=== PATIENT | female | born 1975 | race Caucasian/White ===

== ENCOUNTER 2020-02-20 09:14 | Emergency (ER) | payer MEDICAID, SELFPAY ==
--- NOTE | ~2020-02-20 | CT_ITS ---
EXAMINATION: CT abdomen pelvis wo con DATE: 02/20/2020 09:59 INDICATION: Possible bowel obstruction and abdominal pain. TECHNIQUE: Computed tomography (CT) of the abdomen and pelvis was performed without intravenous contr ast. The dose-length product was 214.04 mGy-cm. Automated exposure control and iterative reconstructi on technique were employed. COMPARISON: None. FINDINGS: Bibasilar atelectasis. Heart size normal. No significant pleural or pericardial effusion. There is hepatomegaly. The spleen, pancreas, right adrenal gland and kidneys are unremarkable. There is a 1.9 cm left adrenal adenoma. Gallbladder is present. Nonobstructive bowel gas pattern. Large dhaval unt of retained fecal material in the colon. Evaluation for lymphadenopathy limited due to lack of co ntrast and intraperitoneal fat. There is a left femoral intramedullary vasile with screws in the femoral neck. Moderate lumbar spondylosis. IMPRESSION: 1. No acute abdominal abnormality. Moderate colonic fecal loading. No small bowel dilation. 2: Hepatomegaly. 3: Left adrenal adenoma measuring 1.9 cm. Reviewed, dictated and finalized at location A. IMPRESSION: 1. No acute abdominal abnormality. Moderate colonic fecal loading. No small bow el dilation. 2: Hepatomegaly. 3: Left adrenal adenoma measuring 1.9 cm.
[2020-02-20 09:16] VITALS: BP 118/76; PULSE 88; RESP 16; TEMP 36.6; O2SAT 100
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
[2020-02-20 09:42] LABS: Basophils Percent Auto 0.4 % (0.2-1.2); Eosinophils Absolute Auto 0.3 K/mm3 (0-0.3); Eosinophils Percent Auto 2.8 % (0-4.4); Hematocrit 41.2 % (37.0-47.0); Hemoglobin 13.8 g/dL (12.0-15.0); Immature Granulocyte Absolute 0.03 K/mm3 (0.00-0.031); Immature Granulocyte Percent A 0.3 % (0-0.5); Lymphocytes Absolute Auto 1.53 K/mm3 (0.9-3.2); Mean Corpuscular HGB Conc 33.5 g/dl (32-36); Mean Corpuscular Hemoglobin 31.8 pg (26-34); Mean Corpuscular Volume 94.9 fl (80-100); Mean Platelet Volume 11.7 fl (7.4-10.4); Monocytes Absolute Auto 0.6 K/mm3 (0.1-0.6); Monocytes Percent Auto 5.3 % (2.6-8.5); Neutrophils Absolute Auto 8.4 K/mm3 (1.3-6.7); Neutrophils Percent Auto 77.2 % (45.5-73.1); Platelet Count Result 247 k/mm3 (150-375); Red Blood Count 4.34 M/mm3 (4.2-5.4); White Blood Count 10.9 K/mm3 (4.5-10.0)
[2020-02-20 09:50] LABS: Add Urine Microscopic? NO; Appearance Urine Clear (Clear); Bacteria Urine Trace /hpf; Bilirubin Urine Negative (Negative); Blood Urine Negative (Negative); Color Urine Yellow (Yellow); Glucose Urine UA Negative (Negative); Ketones Urine Negative (Negative); Leukocyte Esterase Ur Negative LEU/UL (Negative); Mucus Urine Rare /lpf; Nitrate Urine Negative (Negative); Protein Urine Negative (Negative); RBC Urine 0-2 /hpf (0-2); Specific Grav Ur 1.018 (1.001-1.035); Squamous Epithelial Cell Urine Occasional /hpf (Few); Urobilinogen Urine Negative mg/dL (<2.0); WBC Urine 0-3 /hpf
[2020-02-20 10:03] LABS: Alanine Aminotransferase 27 U/L (4-35); Albumin Level 4.6 g/dL (3.5-5.1); Alkaline Phosphatase 39 U/L (38-126); Aspartate Amino Transferase 49 U/L (14-36); Bilirubin,Total 0.6 mg/dL (0.2-1.3); Blood Urea Nitrogen 22 mg/dL (7-17); Calcium 9.3 mg/dL (8.4-10.2); Carbon Dioxide 29 mmol/L (22-30); Chloride 103 mmol/L (98-107); Estimated CRCL calculation 64 ml/min; Estimated Glomerular Filt Rate > 60; Glucose 95 mg/dL (65-105); Lipase 126 U/L (23-300); Potassium 4.4 mmol/L (3.4-5.0); Sodium 138 mmol/L (137-145)
[2020-02-20] MEDS: FAMOTIDINE 20 MG/2 ML VIAL IV PUSH (10:09)
--- NOTE | 2020-02-20 10:09 | PC.NURSE ---
Call to pharmacy to check status of mag oxide pill. Message left.
[2020-02-20] MEDS: MAGNESIUM OXIDE 200 MG TABLET PO (10:27)
[2020-02-20 11:02] VITALS: BP 120/65; PULSE 80; RESP 18; O2SAT 100
== END 2020-02-20 11:04 | disposition home or self-care (01) ==
PROVIDERS: Emergency Provider Emergency Medicine; PCP Family Medicine
DX: K58.1 Irritable bowel syndrome with constipation (principal); F41.9 Anxiety disorder, unspecified; J45.909 Unspecified asthma, uncomplicated; F32.9 Major depressive disorder, single episode, unspecified; R16.0 Hepatomegaly, not elsewhere classified; D35.02 Benign neoplasm of left adrenal gland
CPT/HCPCS: 36415; 74176; 80053; 81003; 81025; 83690; 85025; 96374; 99284; A9270

== ENCOUNTER 2020-03-08 15:27 | Outpatient (CLI) | payer MEDICAID, SELFPAY ==
[2020-03-08 19:15] LABS: Free T4 Free Thyroxine Reflex 1.23 ng/dL (0.78-2.19)
[2020-03-09 04:40] LABS: Total Triiodothyronine (T3) 1.13 NG/ML (0.97-1.69)
== END 2020-03-08 15:28 | disposition home or self-care (01) ==
PROVIDERS: PCP Family Medicine; Visit Provider Family Medicine
DX: E03.9 Hypothyroidism, unspecified (principal)
CPT/HCPCS: 36415; 84439; 84443; 84480

== ENCOUNTER 2020-03-11 15:55 | Emergency (ER) | payer MEDICAID, SELFPAY ==
--- NOTE | ~2020-03-11 | CT_ITS ---
EXAMINATION: CT abdomen pelvis w con DATE: 03/11/2020 17:31 INDICATION: Right lower quadrant abdominal pain. TECHNIQUE: Computed tomography (CT) of the abdomen and pelvis was performed with 100 mL Omnipaque-350 intravenous contrast. Automated exposure control and iterative reconstruction technique were employe d. The dose-length product was 180.94 mGy-cm. COMPARISON: 02/20/2020 FINDINGS: Mild atelectasis/scarring at the right middle and left lower lobes. Visualized inferior heart is norm al. No pericardial or pleural effusion. The mid bile duct is mildly dilated measuring up to 7 mm in m aximal diameter and there is mild intrahepatic biliary ductal dilation. No definitive obstructing sto ne or mass. Liver is otherwise normal. Gallbladder is normal. Pancreas, spleen, bilateral kidneys and right adrenal gland are normal. 1.5 cm left adrenal adenoma with low attenuation on prior noncontras t study. Bowels including the appendix are normal. Partially decompressed bladder and anteverted uter us are normal. No free intraperitoneal gas or fluid. No pathologically enlarged abdominal or pelvic l ymphadenopathy. Partially visualized old distal left femoral diaphyseal fracture seen on the perforator operator to pogram which is fixed with an antegrade intramedullary vasile and a couple interlocking femoral neck scr ews. IMPRESSION: 1. Mild intra and extra hepatic biliary ductal dilation without evident obstructing stone or mass. Co rrelate with liver function tests and consider further evaluation with MRCP. Reviewed, dictated and finalized at location A. IMPRESSION: 1. Mild intra and extra hepatic biliary ductal dilation without evident obstruc ting stone or mass. Correlate with liver function tests and consider further ev aluation with MRCP.
[2020-03-11 16:05] VITALS: BP 125/77; PULSE 80; RESP 18; TEMP 37.1; O2SAT 100
[2020-03-11 16:59] LABS: Basophils Percent Auto 0.3 % (0.2-1.2); Eosinophils Absolute Auto 0.2 K/mm3 (0-0.3); Eosinophils Percent Auto 3.3 % (0-4.4); Hematocrit 36.5 % (37.0-47.0); Hemoglobin 12.5 g/dL (12.0-15.0); Immature Granulocyte Absolute 0.01 K/mm3 (0.00-0.031); Immature Granulocyte Percent A 0.2 % (0-0.5); Lymphocytes Absolute Auto 2.75 K/mm3 (0.9-3.2); Lymphocytes Percent Auto 45.3 % (18.3-44.2); Mean Corpuscular HGB Conc 34.2 g/dl (32-36); Mean Corpuscular Hemoglobin 31.6 pg (26-34); Mean Corpuscular Volume 92.4 fl (80-100); Mean Platelet Volume 11.5 fl (7.4-10.4); Monocytes Absolute Auto 0.4 K/mm3 (0.1-0.6); Monocytes Percent Auto 6.4 % (2.6-8.5); Neutrophils Absolute Auto 2.7 K/mm3 (1.3-6.7); Neutrophils Percent Auto 44.5 % (45.5-73.1); Platelet Count Result 190 k/mm3 (150-375); Red Blood Count 3.95 M/mm3 (4.2-5.4); Red Cell Distribution Width 11.9 % (11.5-14.5); White Blood Count 6.1 K/mm3 (4.5-10.0)
[2020-03-11 17:01] LABS: Add Urine Microscopic? NO; Appearance Urine Clear (Clear); Bilirubin Urine Negative (Negative); Blood Urine Negative (Negative); Color Urine Yellow (Yellow); Glucose Urine UA Negative (Negative); Ketones Urine Negative (Negative); Leukocyte Esterase Ur Negative LEU/UL (Negative); Nitrate Urine Negative (Negative); Protein Urine Negative (Negative); Urobilinogen Urine Negative mg/dL (<2.0)
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
[2020-03-11 17:14] LABS: Alanine Aminotransferase 13 U/L (4-35); Albumin Level 4.2 g/dL (3.5-5.1); Alkaline Phosphatase 38 U/L (38-126); Aspartate Amino Transferase 23 U/L (14-36); Bilirubin,Total 0.2 mg/dL (0.2-1.3); Blood Urea Nitrogen 15 mg/dL (7-17); CRP < 0.5 mg/dL (<1.0); Carbon Dioxide 29 mmol/L (22-30); Chloride 103 mmol/L (98-107); Estimated CRCL calculation 66 ml/min; Estimated Glomerular Filt Rate > 60; Glucose 76 mg/dL (65-105); Lipase 64 U/L (23-300); Potassium 3.5 mmol/L (3.4-5.0); Sodium 137 mmol/L (137-145)
[2020-03-11 19:31] VITALS: BP 122/80; PULSE 78; RESP 20; O2SAT 100
== END 2020-03-11 19:34 | disposition home or self-care (01) ==
PROVIDERS: Emergency Provider Emergency Medicine; PCP Family Medicine
DX: R10.30 Lower abdominal pain, unspecified (principal); J45.909 Unspecified asthma, uncomplicated; K58.9 Irritable bowel syndrome, unspecified; F32.9 Major depressive disorder, single episode, unspecified; F41.9 Anxiety disorder, unspecified; Z77.22 Contact with and (suspected) exposure to environmental tobacco smoke (acute) (chronic); R93.2 Abnormal findings on diagnostic imaging of liver and biliary tract
CPT/HCPCS: 36415; 74177; 80053; 81003; 81025; 83690; 85025; 86140; 96374; 99284; J0131; Q9967

== ENCOUNTER 2020-10-17 09:10 | Outpatient (CLI) | payer BC, SELFPAY ==
--- NOTE | ~2020-10-17 | US_ITS ---
EXAMINATION: US pelvic complete w TV DATE: 10/17/2020 09:59 INDICATION: Pelvic pain TECHNIQUE: Multiple transabdominal and endovaginal sonographic images of the pelvis were obtained. COMPARISON: None. FINDINGS: The uterus measures 5.5 x 2.3 x 3.9 cm. The endometrial complex measures 1 mm in thickness. The righ t and left ovaries are not visualized.. There is no free fluid in the pelvis. IMPRESSION: 1. Normal uterus. Bilateral ovaries are not visualized. Reviewed, dictated and finalized at location B. S SUPERVISOR
== END 2020-10-17 09:11 | disposition home or self-care (01) ==
PROVIDERS: PCP Family Medicine; Visit Provider Physician Assistant
DX: R10.2 Pelvic and perineal pain (principal)
CPT/HCPCS: 76830; 76856

== ENCOUNTER 2021-08-19 15:08 | Emergency (ER) | payer OTHER, SELFPAY ==
[2021-08-19 15:15] VITALS: BP 111/84; PULSE 77; RESP 16; TEMP 36.7; O2SAT 100
--- NOTE | 2021-08-19 15:21 | ED.EAR ---
HPI - Ear Problem General Chief complaint: Ear Stated complaint: right ear pain Time Seen by Provider: 08/19/21 15:21 Source: patient Mode of arrival: ambulatory Limitations: no limitations History of Present Illness HPI Narrative: Quynh Garcia is a 46 yo female with PMH of narcotic dependence, hypothyroid, IBS, GERD, [facility] she states that she has something else should avoid back of the canal that her doctor has been able to get out, tried flushing out without success -and has not consistently use Debrox as recommended, nor seen an ENT, She also says she has urinary frequency Related Data Home Medications Medication Instructions Recorded Confirmed buprenorphine-naloxone [Suboxone] 1 film BUCCAL DAILY 02/20/20 celecoxib mg 08/19/21 estradiol mg 08/19/21 gabapentin 08/19/21 levothyroxine 08/19/21 linaclotide [Linzess] mcg 08/19/21 misoprostol mcg 08/19/21 pantoprazole PO 08/19/21 progesterone micronized mg 08/19/21 Allergies Allergy/AdvReac Type Severity Reaction Status Date / Time morphine Allergy Intermediate Unknown Verified 08/19/21 15:19 Penicillins Allergy Unknown Unknown Verified 08/19/21 15:19 tetanus toxoid, adsorbed Allergy Unknown Unknown Verified 08/19/21 15:19 Tetanus Vaccines and Toxoid Allergy Unknown Unknown Verified 08/19/21 15:19 Review of Systems Review of Systems: CONSTITUTIONAL: Denies fever, chills, sweats. EYES: Denies visual changes, redness, discharge. ENT: Denies rhinorrhea, congestion, sore throat, R otalgia. CARDIOVASCULAR: Denies chest pain, palpitations, edema. RESPIRATORY: Denies dyspnea, wheezing, cough GASTROINTESTINAL: Denies abdominal pain, nausea, vomiting, diarrhea. GENITOURINARY: has dysuria, hematuria, abnormal discharge SKIN: Denies rash or itching. NEUROLOGIC: Denies numbness, or focal weakness. PSYCHIATRIC: Denies anxiety or depression. PMFSH Past Medical History Medical History Anxiety Asthma Depression Irritable bowel syndrome Left leg injury Narcotic dependence Pelvic inflammatory disease Surgical History Surgical History History of hip surgery Family History Family History Mother Hypertension Father Family history of coronary artery disease Family history of heart disease in male family member before age 55 Other Asthma Social History Social History Second hand tobacco smoke exposure: Yes Alcohol intake: never Gender identity (if verbalized by the patient): Female Comments At time of signature, I agree with nursing past medical, surgical, social and family history. There is no relevant family history pertinent to the presenting complaint. Exam Narrative: GENERAL: This is a well-nourished, well-developed patient, in mild distress. HEAD: normocephalic, atraumatic. EYES: Sclera clear/white. Vision is grossly intact. EARS: External ears normal, auditory canal on R mild erythema, with wax or cotton back in canal and without drainage, TMs normal not visualized Hearing grossly intact. NOSE: External nose normal without nasal discharge, nares without redness, no rhinorrhea. THROAT: Mucous membranes moist, NECK: Neck supple, CARDIOVASCULAR: Regular rate and rhythm without murmurs, gallops, or rubs. RESPIRATORY: Clear to auscultation. Breath sounds equal bilaterally. No wheezes, rales, or rhonchi. GASTROINTESTINAL: Abdomen soft, SKIN: warm, intact with no suspicious lesions or rash, good texture and turgor. NEURO: awake, alert, and oriented to person, place and time. There were no obvious focal neurologic abnormalities. Steady gait EXTREMITIES: Normal range of motion. BACK: Nontender without deformity Course Course Emergency Course: Patient comes with right ear pain and
== END 2021-08-19 16:02 | disposition home or self-care (01) ==
PROVIDERS: Emergency Provider Nurse Practitioner; PCP Family Medicine
DX: R30.0 Dysuria (principal); H66.001 Acute suppurative otitis media without spontaneous rupture of ear drum, right ear; J45.909 Unspecified asthma, uncomplicated; E03.9 Hypothyroidism, unspecified; K21.9 Gastro-esophageal reflux disease without esophagitis
CPT/HCPCS: 81003; 99213; G0463

== ENCOUNTER 2021-09-04 00:42 | Day surgery (SDC) | payer OTHER, SELFPAY ==
[2021-08-27 12:36] VITALS: BMI 19.5
--- NOTE | 2021-08-27 12:42 | PC.NURSE ---
Report to the Outpatient Waiting Room, entrance under the green pavilion located off [facility], at time _1130__ on date 09-04-2021. OR Time: ___1330_. - You and your visitor will be asked a series of questions to screen for COVID 19 for your protection. - A mask is required within the hospital. - Only one visitor is allowed at this time. Patient visitors will be guided where to wait when not with patient. Preoperative COVID Testing Requirements: No COVID Test needed if: (proof is required; if not received patient will have Rapid Test prior to entry) - Patient has received COVID Vaccine at least 14 days prior to procedure date or - Patient has positive COVID test result within last 90 days of surgery date. COVID Test needed if above criteria is not met If not COVID vaccinated a COVID test must be conducted within 72 hours of surgery and patient is asked to isolate self from time of testing until procedure. You will go to the [employer] [facility] for your COVID testing. The [employer] [facility] site is located at the corner of [address] [facility]. You will only be called if COVID results are positive and your surgeon may reschedule your elective surgery date. Patients may have clear liquids (water, carbonated beverages, clear teas, apple juice) until 3 hours prior to surgery with a maximum of 20 ounces. - No food from midnight until time of surgery - Infants may have breast milk until 4 hours before surgery, formula 6 hours prior to surgery. - Children will be allowed to drink immediately following surgery. If applicable, please bring a bottle or sippy cup to assist with drinking. Juice, water, soda, and popsicles are readily available. For infants on formula, please bring formula the day of surgery. Pacifiers are allowed. Take the following medications with a SIP of water the morning of surgery: ___Levothyroxine, and Gabapentin Medications to discontinue per physician Date to take last dose Please no make-up, nail armenian, hairspray, perfume, deodorant, or body powder the day of surgery. No jewelry (including any body piercings) or valuables the day of surgery, leave them at home. Please take a shower or bath the night before, or the morning of, surgery with an antibacterial soap. Wear comfortable, loose fitting clothing. Children are encouraged to wear pajamas. - Jewelry must be removed prior to entering the operating room. Rings and piercings that are not removed may be cut off. - The hospital will not accept responsibility for valuables. - Please leave all valuables, including medications, at home the day of surgery. If you are going home after surgery, a licensed delivery truck driver must drive you home. - NO public transportation without another adult. - We recommend that an adult stay with you for 24 hours following discharge. - We also recommend that you do not drive, make important decision, drink alcoholic beverages, or take any drugs that were not prescribed by your health care provider for at least 24 hours after your discharge time. For Pediatric surgeries, we recommend two adults accompany the child home (only one inside the building at this time). Follow any additional instructions given to you from your surgeon. Telephone instructions given to ___Patient_and asked if any additional questions and then verbalized understanding. Patient advised to call surgeon office or pre surgery nurse liaison [phone] if any additional questions.
[2021-09-04] VITALS (9 sets, daily range): BP systolic 107–144; BP diastolic 67–87; PULSE 45–79; RESP 10–18; TEMP 36.1–36.2; O2SAT 98–100
[2021-09-04] MEDS: LACTATED RINGERS 1,000 ML 30 ML IV CONT ×2 (11:26→14:00)
[2021-09-04] MEDS: ACETAMINOPHEN 500 MG TABLET 1000 MG PO (11:27)
[2021-09-04] MEDS: KETOROLAC 15 MG/ML VIAL (*BKC) IV PUSH (11:27)
--- NOTE | 2021-09-04 11:42 | WPDANESEPPF ---
Anes - Initial Pre Proc Eval Procedure: Operation Date: 09/04/21 13:00 Proposed Procedures p Diagnostic Laparoscopy, with Hysteroscopy Dilation and Curettage - Jonathan Hickey MD Date/Time: 09/04/21 11:42 Surgeon: Jonathan Hickey MD Pre Op Diagnosis: pelvic pain, menorrhagia Patient Data Age: 46 Gender: F Height: 1.6 m Weight: 46.95 kg Last Vital Signs Temp 36.2 C L 09/04/21 11:38 Pulse 79 09/04/21 11:38 Resp 16 09/04/21 11:38 BP 133/67 09/04/21 11:38 Pulse Ox 100 09/04/21 11:38 Allergies Allergy/AdvReac Type Severity Reaction Status Date / Time No Known Allergies Allergy Verified 09/04/21 11:37 Home Medications Medication Instructions Recorded Confirmed Type buprenorphine-naloxone [Suboxone] 1 film BUCCAL DAILY 02/20/20 09/04/21 History gabapentin 300 mg PO TID 08/19/21 09/04/21 History ibuprofen 800 mg PO TID PRN #20 tablet 08/19/21 09/04/21 Rx levothyroxine 88 mcg PO DAILY 08/19/21 09/04/21 History linaclotide [Linzess] 145 mcg PO BID 08/19/21 09/04/21 History [id number] 4 drp RIGHT EAR Q8H 10 Days #10 ml 08/19/21 09/04/21 Rx pantoprazole 40 mg PO DAILY 08/19/21 09/04/21 History progesterone micronized 100 mg PO DAILY 08/19/21 09/04/21 History Patient hx anesthesia problems: none Family hx anesthesia problems: none Results Review: All pre-operative results and documents have been reviewed as part of the pre-operative evaluation. [facility] Past Medical History Medical History Anxiety Asthma Depression Irritable bowel syndrome Left leg injury Narcotic dependence Pelvic inflammatory disease Surgical History Surgical History History of hip surgery Family History Family History Mother Hypertension Asthma Heart disease Father Family history of coronary artery disease Family history of heart disease in male family member before age 55 Alcoholism Diabetes mellitus Social History Social History (Updated 09/04/21 @ 11:45 by Terrence Mckee MD) Smoking packs per day: 1 Smoking cigarettes per day: 20.0 Years smoked: 30 Smoking pack-years: 30.00 Smoking status: Current every day smoker Tobacco type: cigarettes Second hand tobacco smoke exposure: Yes Alcohol intake: never Substance use: never Substance use type: does not use Living arrangements: with family Gender identity (if verbalized by the patient): Female Spiritual care concerns: No Anes - Eval Final PreProcedure Day of Procedure 09/04/21 11:42 Patient weight: normal Heart: regular rate and rhythm Lungs: clear to auscultation Airway: Mallampati scale class II and other (dentures) Neurological: alert and oriented Last oral intake: >/= 8 hours ASA classification: III Emergent: no Anesthetic plan: proceed Anesthesia type and monitoring: general GIVS and standard monitoring Results Review: All pre-operative results and documents have been reviewed as part of the pre-operative evaluation. Informed Consent: The patient's anesthetic plan and its attendant risks and benefits were discussed with the patient/family/POA. Questions were solicited and answers provided to the satisfaction of the patient/family/POA.
--- NOTE | 2021-09-04 12:05 | WPDHPUPDATE1 ---
History and Physical Update Update Date/Time: 09/04/21 12:05 History and Physical has been reviewed, including an updated exam of the patient. There are NO changes in the patient's condition. Risks, benefits, and alternatives have been discussed and questions answered. Patient agrees to proceed with procedure.
--- NOTE | 2021-09-04 14:07 | W.PM.PROC2 ---
Procedure Note - Detailed Date of Procedure 09/04/21 Pre-op Diagnosis pelvic pain, menorrhagia Post-op Diagnosis same Procedure Performed Diagnostic laparoscopy, hysteroscopy D&C Surgeon Jonathan Hickey MD Anesthesia general Indications Pelvic pain, heavy vaginal bleeding Findings Normal-appearing pelvis, normal-appearing uterus, ovaries, tubes. There was some changes in the tissue of the peritoneum in the areas of the pelvis with some vascularity. One of these areas with biopsy. The endometrial cavity appeared normal. The cervix, vagina, and vulva appeared normal. Description of Procedure The patient was taken to the operating room. She was prepped and draped in the dorsal lithotomy position after induction general anesthesia. A 5 mm incision was made with a scalpel on the abdominal skin in the left upper quadrant of the abdomen. A 5 mm trocar was inserted into the intra-abdominal cavity under direct visualization the scope. In the same fashion a 5 mm left lower quadrant trocar was inserted and a 5 mm infraumbilical trocar was inserted. the pelvis was examined. A biopsy in the left hemipelvis was performed. The pelvic peritoneum was raised in the left side and it was transected removing a moderate sized piece of the peritoneum. The under lying ureter was examined and found to be intact. Pelvis was irrigated. It was thoroughly examined. The laparoscopic portion the procedure was completed. The pneumoperitoneum was reduced. The trocars removed. The skin was closed with subcuticular 4-0 Monocryl and covered with Dermabond. Hysteroscopy D&C was performed. They speculum was placed in the vagina. The cervix grasped with a tenaculum. The cervix was dilated to about 7 mm. A hysteroscope was inserted. The above findings were noted. The endometrium was completely curettaged with a small sharp curette. The specimens were collected. The procedure was terminated. The tenaculum was removed and the speculum was was removed also. She was taken recovery room in stable condition. Sponge lap and needle counts were correct x2. Estimated Blood Loss 20 Pathology yes Complications No immediate complications Condition stable Disposition PACU
[2021-09-04] MEDS: fentaNYL CITRATE INJ (*CRX) 100 MCG/2 ML VIAL 25 MCG IV PUSH ×2 (14:55→14:59)
[2021-09-04] MEDS: oxyCODONE HCL (*CRX) 5 MG TAB IR PO (15:51)
== END 2021-09-04 16:30 | disposition home or self-care (01) ==
PROVIDERS: PCP Family Medicine; Visit Provider Obstetrics & Gynecology
PROC: 0UDB8ZZ Extraction of Endometrium, Via Natural or Artificial Opening Endoscopic (ICD-10-PCS; CPT 58558; principal; 2021-09-04 13:00)
DX: R10.2 Pelvic and perineal pain (principal); N92.0 Excessive and frequent menstruation with regular cycle; N80.3 Endometriosis of pelvic peritoneum; K58.9 Irritable bowel syndrome, unspecified; F11.20 Opioid dependence, uncomplicated; F17.210 Nicotine dependence, cigarettes, uncomplicated
CPT/HCPCS: 58558; 49320; 88305; A9270; J1100; J1885; J2250; J2405; J2704; J2710; J3010; J7030; J7120

== ENCOUNTER 2021-11-13 00:28 | Day surgery (SDC) | payer OTHER, SELFPAY ==
[2021-11-09 09:21] VITALS: BMI 19.1
--- NOTE | 2021-11-09 09:35 | PC.NURSE ---
Report to the Outpatient Waiting Room, entrance under the green pavilion located off [facility], at time 0600 on date 11/13/21. OR Time: 0730. - You and your visitor will be asked a series of questions to screen for COVID 19 for your protection. - A mask is required within the hospital. One visitor will be allowed to accompany the patient into the hospital. Patients visitor will be instructed to remain with patient at all times or leave the building. We will allow the visitor to come back to the postoperative area when patient is ready. Preoperative COVID Testing Requirements: No COVID Test needed if: (proof is required; if not received patient will have Rapid Test prior to entry) - Patient has received COVID Vaccine at least 14 days prior to procedure date or - Patient has positive COVID test result within last 90 days of surgery date. COVID Test needed if above criteria is not met Patients may have clear liquids (water, carbonated beverages, clear teas, apple juice) until 3 hours prior to surgery with a maximum of 20 ounces. - No food from midnight until time of surgery Take the following medications with a SIP of water the morning of surgery: GABAPENTIN, LEVOTHYROXINE Medications to discontinue per physician: N/A Date to take last dose: N/A Please no make-up, nail wolof, hairspray, perfume, deodorant, or body powder the day of surgery. No jewelry (including any body piercings) or valuables the day of surgery, leave them at home. Please take a shower or bath the night before, or the morning of, surgery with an antibacterial soap. Wear comfortable, loose fitting clothing. - Jewelry must be removed prior to entering the operating room. Rings and piercings that are not removed may be cut off. - The hospital will not accept responsibility for valuables. - Please leave all valuables, including medications, at home the day of surgery. If you are going home after surgery, a licensed hydraulic lift driver must drive you home. - NO public transportation without another adult. - We recommend that an adult stay with you for 24 hours following discharge. - We also recommend that you do not drive, make important decision, drink alcoholic beverages, or take any drugs that were not prescribed by your health care provider for at least 24 hours after your discharge time. Follow any additional instructions given to you from your surgeon. Telephone instructions given to BENITA TERAN and asked if any additional questions and then verbalized understanding. Patient advised to call surgeon office or pre surgery nurse liaison [phone] if any additional questions.
[2021-11-13] VITALS (11 sets, daily range): BP systolic 98–132; BP diastolic 56–83; PULSE 51–80; RESP 12–18; TEMP 36.2–37.6; O2SAT 99–100
--- NOTE | 2021-11-13 06:04 | ECG_ITS ---
Measurements Intervals [place] Rate: 79 P: 81 ID: 150 QRS: 82 QRSD: 89 T: 69 QT: 393 QTc: 452 Interpretive Statements SINUS RHYTHM BASELINE ARTIFACT- I, II, III, AVR, AVL, AVF, V1-V2, V5-V6 NORMAL ECG Electronically Signed On 11-13-2021 10:17:17 [employer] by Sridhar Xiong D.O.
--- NOTE | 2021-11-13 06:54 | P.PNAN_ITS ---
Anes - Initial Pre Proc Eval Procedure: Operation Date: 11/13/21 07:30 Proposed Procedures p Total Laparoscopic Hysterectomy with Bilateral Salpingo-Oophorectomy - Jonathan Hickey MD Date/Time: 11/13/21 06:54 Surgeon: Jonathan Hickey MD Pre Op Diagnosis: endometriosis of uterus Patient Data Age: 46 Gender: F Height: 1.6 m Weight: 49 kg Allergies Allergy/AdvReac Type Severity Reaction Status Date / Time No Known Allergies Allergy Verified 11/09/21 09:20 Home Medications Medication Instructions Recorded Confirmed Type buprenorphine-naloxone [Suboxone] 1 film BUCCAL DAILY 02/20/20 11/09/21 History gabapentin 300 mg PO TID 08/19/21 11/09/21 History ibuprofen 800 mg PO TID PRN #20 tablet 08/19/21 11/09/21 Rx levothyroxine 88 mcg PO DAILY 08/19/21 11/09/21 History pantoprazole 40 mg PO DAILY 08/19/21 11/09/21 History Patient hx anesthesia problems: none and other (motion sickness) Family hx anesthesia problems: none Results Review: All pre-operative results and documents have been reviewed as part of the pre-operative evaluation. [facility] Past Medical History Medical History Anxiety Asthma Depression Irritable bowel syndrome Left leg injury Narcotic dependence Pelvic inflammatory disease Surgical History Surgical History History of hip surgery Family History Family History Mother Hypertension Asthma Heart disease Father Family history of coronary artery disease Family history of heart disease in male family member before age 55 Alcoholism Diabetes mellitus Social History Social History Smoking packs per day: 1 Smoking cigarettes per day: 20.0 Years smoked: 30 Smoking pack-years: 30.00 Smoking status: Current every day smoker Tobacco type: cigarettes Second hand tobacco smoke exposure: Yes Alcohol intake: never Substance use: never Substance use type: does not use Living arrangements: with family Gender identity (if verbalized by the patient): Female Spiritual care concerns: No Anes - Eval Final PreProcedure Day of Procedure 11/13/21 06:54 Patient weight: normal Heart: regular rate and rhythm Lungs: decreased breath sounds Airway: Mallampati scale class II Neurological: alert and oriented Last oral intake: >/= 8 hours ASA classification: III Emergent: no Anesthetic plan: proceed Anesthesia type and monitoring: general ETT and standard monitoring Results Review: All pre-operative results and documents have been reviewed as part of the pre-operative evaluation. Informed Consent: The patient's anesthetic plan and its attendant risks and benefits were discussed with the patient/family/POA. Questions were solicited and answers provided to the satisfaction of the patient/family/POA.
[2021-11-13] MEDS: LACTATED RINGERS 1,000 ML 30 ML IV CONT ×2 (06:59→09:05)
[2021-11-13] MEDS: ACETAMINOPHEN 500 MG TABLET 1000 MG PO (07:00)
[2021-11-13] MEDS: KETOROLAC 15 MG/ML VIAL (*BKC) IV PUSH (07:00)
[2021-11-13] MEDS: SCOPOLAMINE 1.5 MG PATCH TRANSDERM (07:00)
--- NOTE | 2021-11-13 07:17 | WPDHPUPDATE1 ---
History and Physical Update Update Date/Time: 11/13/21 07:17 History and Physical has been reviewed, including an updated exam of the patient. There are NO changes in the patient's condition. Risks, benefits, and alternatives have been discussed and questions answered. Patient agrees to proceed with procedure.
[2021-11-13] MEDS: ceFAZolin 2 GM/D5W 50 ML 2 GM/50 ML BAG IVPB (07:22)
--- NOTE | 2021-11-13 09:16 | W.PM.PROC2 ---
Procedure Note - Detailed Date of Procedure 11/13/21 Pre-op Diagnosis endometriosis of uterus , pelvic pain Post-op Diagnosis same Procedure Performed Total laparoscopic hysterectomy and bilateral salpingo-oophorectomy. Surgeon Jonathan Hickey MD Anesthesia general Indications pelvic pain, endometriosis Findings Moderate sized uterus, normal appearing ovaries and normal-appearing tubes. a dense area of scar to the left hemipelvis that was 3 x 2 cm. Adhesions between the left ovary in the left hemipelvis. Description of Procedure This patient was taken to the operating room. She was prepped and draped in the dorsal lithotomy position after induction of general anesthesia. The uterine manipulator and Dallas cup were placed. This was done with a speculum and tenaculum. The speculum was placed. The cervix was grasped with a tenaculum. The stay sutures were placed at 3 and 9:00 a.m.. The stay sutures of 0 Vicryl were brought through the appropriately sized Dallas cup. The tip of the NAV manipulator was placed in the intrauterine cavity. The cup was slid into place around the cervix and into the fornices. It was locked into place. The sutures were then wrapped around the handle and tied under tension. A 5 mm skin incision was made in the left upper quadrant the abdomen. A 5 mm trocar was inserted into the intrauterine cavity under direct visualization of the scope. Pneumoperitoneum was achieved. A left lower quadrant 11 mm incision was made with scalpel. An 11 mm trocar was inserted into the anterior abdominal cavity under direct visualization the scope. A 5 mm infraumbilical incision was made with a scalpel and a 5 mm trocar was inserted the intra-abdominal cavity under direct visualization of the scope. Bilateral ureteral lysis was performed. This was done from the pelvic brim down to the uterine artery. This was done with careful dissection using sharp and blunt dissection.An area of scar tissue on the left hemipelvis superior /lateral to the left ureter was dissected free with continued observation of the ureter. At the end of this dissection the ureter was intact. The specimen was taken out the left lower quadrant trocar site and sent separately. The infundibulopelvic ligaments were isolated after identification of the ureters bilaterally. These infundibulopelvic ligaments were cauterized and transected with LigaSure cautery. The para ovarian tissue was cauterized and transected with LigaSure cautery bilaterally. Moving around the ovary into the broad ligament the tissue was cauterized transected with LigaSure cautery. The round ligaments were cauterized transected with LigaSure cautery this was all done in a bilateral fashion. In a stepwise fashion along the lateral aspects of the uterus the round ligament and broad ligaments were cauterized transected down to the level of the uterine arteries. A bladder flap was created in the bladder was moved distally to the end of the cervix and over the Dallas cup. The bilateral uterine arteries were cauterized and transected. Colpotomy was then performed. In a circumferential fashion the vagina was transected using unipolar cautery. The incision was made down on the Dallas cup. The uterus, cervix, fallopian tubes and ovaries were taken out through the vagina. A pneumo occluder was placed in the vagina. The vaginal cuff was closed with a 0 V lock suture in a running fashion. The pelvis was irrigated with copious amounts antibiotic irrigation. The ureters were again examined and found to be intact and flowing freely under the uterine arteries into the bladder. The bladder was intact. It was examined directly. The vagina was irrigated with Betadine solution after removal of the Pneumo occluder. The patient was taken to recovery room. She was stable condition. Sponge lap and needle counts were correct x2. Estimated Blood Loss -25.0 Drains Yes Packing No Pathology yes Complications No immediat
[2021-11-13] MEDS: fentaNYL CITRATE INJ (*CRX) 100 MCG/2 ML VIAL 25 MCG IV PUSH ×4 (10:00→10:26)
--- NOTE | 2021-11-13 10:55 | PC.NURSE ---
This patient, Quynh Garcia, was received from PACU on 11/13/21 at 1055. Patient/family oriented to unit policies and routines
[2021-11-13] MEDS: DEXTROSE 5%/0.45% SOD CHL 1,000 ML 125 ML IV CONT (11:35)
[2021-11-13] MEDS: KETOROLAC 30 MG/ML VIAL (*BKC) IV PUSH (11:35)
[2021-11-13] MEDS: GABAPENTIN 300 MG CAPSULE PO (13:43)
[2021-11-13] MEDS: DICLOFENAC SODIUM 0.1% OPHTH SOLN 2.5 ML BOTTLE 1 DROP EACH EYE (13:44)
[2021-11-13] MEDS: PROPARACAINE HCL 0.5% 15 ML OPHTH SOLN 1 DROP EACH EYE (15:00)
[2021-11-13] MEDS: HYDROcodone/acetaminophen (*CRX) 5-325 MG TABLET 1 TAB PO ×2 (16:01→16:58)
[2021-11-13] MEDS: ARTIFICIAL TEARS OPHTH SOLN 15 ML BOTTLE 1 DROP EACH EYE (16:02)
--- NOTE | 2021-11-13 19:53 | PC.NURSE ---
1850- Went over discharge instructions with patient. Verbalizes understanding with no questions. Pt's mom here to take her home.
== END 2021-11-13 18:53 | disposition home or self-care (01) ==
LOC: ANHSURGERY 07:33 → ANHOB2 10:57
PROVIDERS: PCP Family Medicine; Visit Provider Obstetrics & Gynecology
PROC: 0UT9FZZ Resection of Uterus, Via Natural or Artificial Opening With Percutaneous Endoscopic Assistance (ICD-10-PCS; CPT 58571; principal; 2021-11-13 07:30)
DX: N80.0 Endometriosis of uterus (principal); N73.6 Female pelvic peritoneal adhesions (postinfective); R10.2 Pelvic and perineal pain; N80.3 Endometriosis of pelvic peritoneum; N83.8 Other noninflammatory disorders of ovary, fallopian tube and broad ligament; F11.20 Opioid dependence, uncomplicated; F17.210 Nicotine dependence, cigarettes, uncomplicated
CPT/HCPCS: 58571; 36415; 86850; 86900; 86901; 88305; 88307; 93005; 99199; A9270; J0690; J1100; J1885; J2250; J2405; J2704; J3010; J7030; J7120

== ENCOUNTER 2022-07-19 06:31 | Outpatient (RCR) | payer OTHER, SELFPAY | END 2022-10-02 11:43 | disposition home or self-care (01) | LOC: ANHPT 06:31 | PROVIDERS: PCP Family Medicine; Visit Provider Nurse Practitioner Obstetrics & Gynecology | DX: R10.2 Pelvic and perineal pain (principal) | CPT/HCPCS: 99199 ==

== ENCOUNTER 2022-12-26 11:44 | Outpatient (CLI) | payer OTHER, SELFPAY ==
[2022-12-26 13:44] LABS: Free T4 Free Thyroxine Reflex 1.36 ng/dL (0.78-2.19)
== END 2022-12-26 11:45 | disposition home or self-care (01) ==
LOC: ANHLAB 11:48
PROVIDERS: PCP Family Medicine; Visit Provider Family Medicine
DX: E03.9 Hypothyroidism, unspecified (principal)
CPT/HCPCS: 36415; 84439; 84443; 84480